=== PATIENT | male | born 1980 | race Caucasian/White ===

== ENCOUNTER 2022-09-22 09:14 | Outpatient (REF) | payer OTHER, SELFPAY ==
[2022-09-22 10:50] LABS: Erythrocyte Sedimentation Rate 4 MM/HR (0-15)
[2022-09-22 10:56] LABS: Anion Gap 14 (12-20); Blood Urea Nitrogen 16 mg/dL (9-16); Calcium 9.5 mg/dL (8.4-10.2); Carbon Dioxide 28 mmol/L (22-29); Chloride 100 mmol/L (96-108); Estimated Glomerular Filt Rate > 60; Glucose Random 98 mg/dL (60-115); Iron 108 mcg/dL (45-160); Percent Iron Saturation 32 % (15-50); Sodium 138 mmol/L (135-145); Total Iron Binding Capacity 334 mcg/dL (228-428); Unsaturated Iron Binding 226 ug/dL
[2022-09-22 11:19] LABS: T4 Thyroxine 5.1 ug/dL (4.5-12.0)
[2022-09-26 16:58] LABS: VITAMIN D (1,25 OH) D3 56 pg/mL; Vit D (1,25-Dihydroxy) Total 56 pg/mL (18-72); Vitamin D (1,25 OH) D2 <8 pg/mL
== END 2022-09-22 09:15 | disposition home or self-care (01) ==
LOC: HO.LAB 09:14
PROVIDERS: PCP Internal Medicine; Visit Provider Psychiatry & Neurology Neurology
DX: G25.81 Restless legs syndrome (principal)
CPT/HCPCS: 36415; 80048; 82550; 82652; 83540; 84436; 85652